=== PATIENT | male | born 2000 | race African-American/Black ===

== ENCOUNTER 2020-11-25 13:03 | Emergency (ER) | payer BC, SELFPAY ==
[2020-11-25 13:12] VITALS: BP 149/63; PULSE 96; RESP 16; TEMP 36.8; O2SAT 99
--- NOTE | 2020-11-25 13:15 | DI.RAD_ITS ---
EXAM: XR ANKLE LT COMPLETE CLINICAL HISTORY: dog bite, fb vs fx TECHNIQUE: 2D digital imaging was performed. COMPARISON: No exams were available for comparison FINDINGS: BONES: No acute fracture is present. No bony destructive lesion is seen. There is a well corticated o sseous density inferior to the lateral malleolus which appears chronic. JOINTS:The ankle mortise is normally aligned. SOFT TISSUE: Mild soft tissue swelling proximal to the medial malleolus. No radiopaque foreign haresh s. IMPRESSION: Mild soft tissue swelling in the lower leg. No radiopaque foreign body or fracture. DATA REPOSITORY: RADIATION DOSE DELIVERED:
--- NOTE | 2020-11-25 13:15 | DI.RAD_ITS ---
EXAM: XR ELBOW RT COMPLETE CLINICAL HISTORY: right elbow injury. TECHNIQUE: 2D digital imaging was performed. COMPARISON: No exams were available for comparison FINDINGS: BONES: No acute fracture is present. No bony destructive lesion is seen. JOINTS: The elbow is normally aligned. No joint effusion is seen. SOFT TISSUE: Normal. IMPRESSION: Unremarkable radiographs of the right elbow. DATA REPOSITORY: RADIATION DOSE DELIVERED:
--- NOTE | 2020-11-25 13:22 | ED.GENADUL_ITS ---
Discharge Plan Disposition Patient Disposition: HOME Condition: Good Discharge Details Clinical Impression: Dog bite, Contusion of elbow, right Primary Care Provider: Naty,Local ED Provider: Merary Greene Home Meds and New Rx's Prescriptions: New amoxicillin-pot clavulanate [Augmentin] 875-125 mg tablet 1 tab PO BID Qty: 14 RF: 0 Discharge Instructions Instructions: Animal Bite (ED), Contusion in Adults (ED) Additional Instructions: Recheck in 48 hours recommended Confirm rabies of disease, if you are unable to confirm rabies within 72 hours, recommend returning to the emergency room for rabies vaccine and immunoglobulin Ibuprofen every 8 hours as needed for pain Tylenol as needed for breakthrough pain Change dressing daily Clean wound daily with warm soapy water Return earlier should you have spreading redness, fever, worsening pain Discharge Data Discharge Date/Time-TO BE ENTERED AT DEPARTURE: 11/25/20 14:43 Medical Decision Making The dog was known to patient and animal control has been notified, he believes the dog is up-to-date on rabies, he will return to the emergency room if he finds that the dog is not up-to-date for rabies vaccine and immunoglobulin Tetanus was updated X-rays do not show acute pathology, right elbow and left ankle within normal limits per radiology interpretation Patient placed on antibiotics Wound irrigated copiously by me Will need recheck in 48 hours Patient will watch for signs or symptoms of infection There is no evidence of joint involvement on my exam today His x-ray of his elbow does not show acute pathology Differential Diagnosis Differential Diagnosis: Cellulitis, puncture, laceration, fracture Medical Records Medical records reviewed: Yes I reviewed the patient's medical records. Lab Data Lab results reviewed: Yes I reviewed the patient's lab results. HPI This 20-year-old male presents with dog bite by noon dog just an hour prior to arrival. He describes the pain as sharp. He denies any strength or sensation changes. Is otherwise reportedly healthy. Unsure regarding tetanus. Is determining rabies status at this time but reportedly dog to date. Denies any additional, time. General Date/Time Provider Initiated Documentation: 11/25/20 13:12 . Related Data Home Medications Medication Instructions Recorded Confirmed amoxicillin-pot clavulanate 1 tab PO BID #14 tab 11/25/20 [Augmentin] Previous Rx's Medication Instructions Recorded amoxicillin-pot clavulanate 1 tab PO BID #14 tab 11/25/20 [Augmentin] Allergies Allergy/AdvReac Type Severity Reaction Status Date / Time No Known Allergies Allergy Unverified 11/25/20 13:18 General Stated Complaint: AnimalBite JB: 4 Review of Systems Narrative: Review of systems negative x7 aside from where indicated in HPI Neurologic Neurologic: Reports system reviewed and no additional complaints, except as documented and Reports as per HPI [facility] Social History Smoking/Tobacco Use Status: Never Smoking risk assessment performed?: Yes Alcohol Intake: never Substance use type: does not use Do you feel safe at home: Yes Do you feel safe in your relationship?: Yes Exam Const General: cooperative and healthy appearing [facility] Head: normal to inspection Eyes General: appearance normal, both eyes and all related structures Pupils: PERRL Neck Other: no Midline tenderness Extrem Other: Several punctures noted to left lower extremity, 5 mm puncture just proximal to the lateral malleolus into adipose tissue, small abrasion to tissue just proximal to the medial malleolus, and small puncture over the Achilles region Negative Hdz test, strength and sensation intact distally, all superficial aside from lateral malleolus Range of motion of ankle intact Right elbow with mild tenderness, range of motion intact, strength and sensation intact distally Course Vital Signs Vital signs: Vital Signs Temperature 36.8 C 11/25/20 13:12 Pulse 96 H 11/25/20 13:12 Respiratory Rate 16 11/25/20 13:12 Blood Pressure 149/63 H 11/25/20 13:12 Pulse Oximetry 99 11/25/20 13:12 Temperature 36.8 C 11/25/20 13:12 Temperature Source Temporal Artery Scan 11/25/20 13:12 Pulse 96 H 11/25/20 13:12 Respiratory Rate 16 11/25/20 13:12 Blood Pressure 149/63 H 11/25/20 13:12 Blood Pressure Position Supine 11/25/20 13:12 Pulse Oximetry 99 11/25/20 13:12 Oxygen Delivery Method Room Air 11/25/20 13:12 Oxygen Flow Rate 0 11/25/20 13:12 Pain Level 7 11/25/20 13:12
[2020-11-25] MEDS: Ibuprofen 600 MG TAB PO (13:47)
[2020-11-25] MEDS: Tetanus & Diphtheria Tox,ADULT 0.5 ML VIAL IM (13:47)
--- NOTE | 2020-11-25 13:50 | NUR.NOTE ---
Nursing Note: Faxed animal bite report to [facility] Officer, Junaid Sánhcez. Leora Capellan
== END 2020-11-25 14:43 | disposition home or self-care (01) ==
PROVIDERS: Emergency Provider Physician Assistant
DX: S91.052A Open bite, left ankle, initial encounter (principal); W54.0XXA Bitten by dog, initial encounter; S50.01XA Contusion of right elbow, initial encounter; X58.XXXA Exposure to other specified factors, initial encounter
CPT/HCPCS: 90471; 99284; 73080; 73610; 99283